=== PATIENT | male | born 1980 | race Caucasian/White ===

== ENCOUNTER 2017-01-09 08:57 | Emergency (ER) | payer MEDICAID, OTHER, SELFPAY ==
[~2017-01-09] VITALS: Ht 172.7 cm; Wt 66.4 kg
[2017-01-09 08:58] VITALS: BP 125/73
[2017-01-09] MEDS ORDERED: IBUPROFEN 200 MG TABLET ONE (09:21)
[2017-01-09] MEDS ORDERED: IBUPROFEN 200 MG TABLET PO ONE (09:30)
== END 2017-01-09 10:17 | disposition home or self-care (01) ==
LOC: ED 09:11
DX: S93.401A Sprain of unspecified ligament of right ankle, initial encounter (principal); X58.XXXA Exposure to other specified factors, initial encounter; Y93.89 Activity, other specified; Y92.89 Other specified places as the place of occurrence of the external cause; Y99.8 Other external cause status
CPT/HCPCS: 99284

== ENCOUNTER 2017-02-01 21:11 | Emergency (ER) | payer MEDICAID ==
[~2017-02-01] VITALS: Ht 172.7 cm; Wt 67.6 kg
[2017-02-01] MEDS ORDERED: KETOROLAC 30 MG/1 ML IVPush ONE (22:30)
[2017-02-01] MEDS ORDERED: ONDANSETRON 2MG/ML, 2ML IVPush ONE (22:30)
[2017-02-01] MEDS ORDERED: SODIUM CHLORIDE FLUSH 10ML SYR IVF ONE (22:30)
[2017-02-01] MEDS ORDERED: KETOROLAC 30 MG/1 ML ONE (23:16)
[2017-02-01] MEDS ORDERED: ONDANSETRON 2MG/ML, 2ML ONE (23:16)
[2017-02-01] MEDS ORDERED: SODIUM CHLORIDE 0.9% 1,000ML IVBOLUS ONE (23:30)
[2017-02-01 23:32] LABS: ASPARTATE AMINO TRANSFERASE 15 U/L (15-37); BLOOD UREA NITROGEN 13 mg/dL (7-18)
[2017-02-02 01:00] LABS: DAU SCREEN DISCLAIMER
[2017-02-02 01:43] VITALS: BP 134/74
== END 2017-02-02 01:46 | disposition home or self-care (01) ==
LOC: ED 23:00
DX: N13.2 Hydronephrosis with renal and ureteral calculous obstruction (principal); R31.9 Hematuria, unspecified
CPT/HCPCS: 36415; 74176; 80053; 80307; 81001; 83690; 85025; 96361; 96374; 96375; 99285; J1885; J2405; J7030